=== PATIENT | male | born 1970 | race Hispanic/Latino ===

== ENCOUNTER 2018-01-28 11:42 | Inpatient (IN) | payer BC ==
[~2018-01-28] VITALS: Ht 175.3 cm; Wt 186.9 kg
[2018-01-28 12:18] LABS: BASOPHILS % (AUTO) 0.2 % (0.0-5.0); EOSINOPHILS % (AUTO) 0.3 % (0.0-8.0); HEMATOCRIT 35.8 % (42-54); MEAN CORPUSCULAR HGB CONC 33.4 g/dL (32.0-36.0); MEAN CORPUSCULAR VOLUME 83.8 fL (79-99); MONOCYTES % (AUTO) 11.6 % (3.0-13.0); NEUTROPHILS % (AUTO) 67.9 % (40.0-77.0); PLATELET COUNT (AUTO) 199 K/uL (130-400); RED BLOOD CELL COUNT(AUTO) 4.27 MIL/uL (4.50-6.20); RED CELL DISTRIBUTION WIDTH 16.3 % (11.0-15.5); WHITE BLOOD COUNT (AUTO) 8.7 K/uL (4.8-10.8)
[2018-01-28 12:25] LABS: CREATININE 1.4 mg/dL (0.5-1.5); POTASSIUM 3.4 mmol/L (3.5-5.1)
[2018-01-28 12:31] LABS: ALBUMIN 2.9 g/dL (3.5-5.0); BILIRUBIN,TOTAL 1.3 mg/dL (0.2-1.0); TOTAL PROTEIN, SERUM 7.8 g/dL (6.0-8.3)
[2018-01-28 12:50] LABS: B-TYPE NATRIURETIC PEPTIDE 182 pg/mL (0-100)
[2018-01-28] MEDS ORDERED: FUROSEMIDE 10 MG/ML 4ML VIAL ONE (14:36)
[2018-01-28] MEDS ORDERED: HYDRALAZINE HCL 20 MG/ML VIAL IV PRN (16:45)
[2018-01-28] MEDS ORDERED: ONDANSETRON HCL MDV 20ML 2 MG/ML VIAL IV PRN (16:45)
[2018-01-28] MEDS ORDERED: FUROSEMIDE 10 MG/ML 4ML VIAL IVP SCH (16:45)
[2018-01-28] MEDS ORDERED: ACETAMINOPHEN-CODEINE 300/30MG TAB PO PRN (16:45)
[2018-01-28] MEDS ORDERED: LACTULOSE 20 GM/30 ML UDCUP PO PRN (16:45)
[2018-01-28] MEDS ORDERED: ACETAMINOPHEN 325 MG TAB PO PRN (16:45)
[2018-01-28 17:42] LABS: TROPONIN I 0.05 ng/mL (0.00-0.06)
[2018-01-28 18:10] VITALS: BP 147/85
[2018-01-28] MEDS: ALBUTEROL SULFATE 0.083% 2.5 MG/3 ML INH IH SCH (19:02)
[2018-01-28 19:08] LABS: ABG BASE EXCESS 2.6 mmol/L (-2.0-3.0); ABG HCO3 26.1 mmol/L (21.0-28.0); ABG OXYGEN SATURATION 95.8 % (95.0-99.0); ABG PCO2 37 mmHg (35-48)
[2018-01-28 19:46] VITALS: BP 146/85
[2018-01-28] MEDS: FUROSEMIDE 10 MG/ML 4ML VIAL IVP SCH ×2 (20:00→20:48)
[2018-01-28] MEDS ORDERED: ENOXAPARIN SODIUM 40 MG/0.4 ML SYRINGE SQ SCH (21:00)
[2018-01-28] MEDS: FAMOTIDINE 20MG TAB 20 MG TAB PO SCH (21:04)
[2018-01-28] MEDS: ENOXAPARIN SODIUM 120 MG/0.8ML SQ SCH (21:05)
[2018-01-28] MEDS ORDERED: IOPAMIDOL-370 100 ML VIAL IV ONE (21:41)
[2018-01-28] MEDS ORDERED: POTASSIUM CHLORIDE 20 MEQ ERTAB PO ONE (22:30)
[2018-01-28] MEDS ORDERED: LIDOCAINE HCL-MPF 1% 2ML VIAL IVP PRN (22:30)
[2018-01-28] MEDS ORDERED: POTASSIUM CHLORIDE 10% ELIXIR 20 MEQ/15 ML UDCUP PO PRN (22:30)
[2018-01-28] MEDS ORDERED: POTASSIUM CHLORIDE 20MEQ/100ML 100 ML IV PRN (22:30)
[2018-01-28 23:39] VITALS: BP 160/96
[2018-01-28 23:53] LABS: TROPONIN I 0.05 ng/mL (0.00-0.06)
[2018-01-29] MEDS: ALBUTEROL SULFATE 0.083% 2.5 MG/3 ML INH IH SCH ×4 (00:03→19:34)
[2018-01-29] MEDS: POTASSIUM CHLORIDE 20 MEQ ERTAB PO PRN (01:39)
[2018-01-29 03:26] VITALS: BP 157/85
[2018-01-29 03:32] LABS: HEMATOCRIT 35.9 % (42-54); MEAN CORPUSCULAR HEMOGLOBIN 27.4 pg (27.0-33.0); MEAN CORPUSCULAR HGB CONC 32.9 g/dL (32.0-36.0); MEAN CORPUSCULAR VOLUME 83.6 fL (79-99); PLATELET COUNT (AUTO) 170 K/uL (130-400); RED CELL DISTRIBUTION WIDTH 16.5 % (11.0-15.5)
[2018-01-29 03:46] LABS: CREATININE 1.3 mg/dL (0.5-1.5); MAGNESIUM 1.8 mg/dL (1.80-2.40); POTASSIUM 3.9 mmol/L (3.5-5.1)
[2018-01-29 03:48] LABS: HEMOGLOBIN A1C 6.4 % (4.0-6.0)
[2018-01-29] MEDS: FUROSEMIDE 10 MG/ML 4ML VIAL IVP SCH ×3 (04:35→21:13)
[2018-01-29 07:00] VITALS: BP 123/99
[2018-01-29] MEDS ORDERED: ENOXAPARIN SODIUM 40 MG/0.4 ML SYRINGE SQ SCH (09:00)
[2018-01-29] MEDS: ENOXAPARIN SODIUM 120 MG/0.8ML SQ SCH (10:24)
[2018-01-29] MEDS: FAMOTIDINE 20MG TAB 20 MG TAB PO SCH ×2 (10:24→21:13)
[2018-01-29 11:00] VITALS: BP 138/93
[2018-01-29 16:00] VITALS: BP 145/87
[2018-01-29 19:53] VITALS: BP 137/92
[2018-01-29 23:52] VITALS: BP 126/81
[2018-01-30] MEDS: ALBUTEROL SULFATE 0.083% 2.5 MG/3 ML INH IH SCH ×2 (00:43→06:09)
[2018-01-30 04:01] VITALS: BP 135/85
[2018-01-30 04:11] LABS: HEMATOCRIT 37.5 % (42-54); MEAN CORPUSCULAR HEMOGLOBIN 27.5 pg (27.0-33.0); MEAN CORPUSCULAR HGB CONC 32.6 g/dL (32.0-36.0); MEAN CORPUSCULAR VOLUME 84.5 fL (79-99); NUCLEATED RED BLOOD CELLS 0.1 % (0.0-0.19); PLATELET COUNT (AUTO) 216 K/uL (130-400); RED BLOOD CELL COUNT(AUTO) 4.44 MIL/uL (4.50-6.20); RED CELL DISTRIBUTION WIDTH 16.9 % (11.0-15.5); WHITE BLOOD COUNT (AUTO) 7.6 K/uL (4.8-10.8)
[2018-01-30 04:25] LABS: CREATININE 1.3 mg/dL (0.5-1.5); INR 1.09 (0.85-1.15); MAGNESIUM 1.7 mg/dL (1.80-2.40); POTASSIUM 3.2 mmol/L (3.5-5.1); PROTHROMBIN TIME 11.4 SEC (9.6-11.6)
[2018-01-30] MEDS: FUROSEMIDE 10 MG/ML 4ML VIAL IVP SCH (04:35)
[2018-01-30] MEDS: POTASSIUM CHLORIDE 20 MEQ ERTAB PO PRN ×3 (04:35→09:10)
[2018-01-30 07:00] VITALS: BP 129/89
[2018-01-30] MEDS: FAMOTIDINE 20MG TAB 20 MG TAB PO SCH ×2 (07:56→22:46)
[2018-01-30] MEDS: METFORMIN HCL 500 MG TABLET PO SCH ×2 (07:56→18:03)
[2018-01-30] MEDS: LISINOPRIL 5 MG TABLET PO SCH (07:56)
[2018-01-30] MEDS ORDERED: ENOXAPARIN SODIUM 40 MG/0.4 ML SYRINGE SQ SCH (09:00)
[2018-01-30] MEDS ORDERED: ENOXAPARIN SODIUM 120 MG/0.8ML SQ SCH (09:00)
[2018-01-30] MEDS ORDERED: ENOXAPARIN SODIUM 60 MG/0.6 ML SQ SCH (09:00)
[2018-01-30] MEDS ORDERED: MAGNESIUM 2GM PREMIX 50ML 50 ML IV SCH (09:00)
[2018-01-30] MEDS ORDERED: ENOXAPARIN SODIUM 1 MG/KG SQ SCH (09:00)
[2018-01-30 11:00] VITALS: BP 130/85
[2018-01-30] MEDS: FUROSEMIDE 20 MG TABLET PO SCH ×2 (11:00→22:47)
[2018-01-30 16:00] VITALS: BP 109/71
[2018-01-30 19:47] VITALS: BP 137/80
[2018-01-30 19:50] VITALS: BP 88/57
[2018-01-30] MEDS ORDERED: FUROSEMIDE 10 MG/ML 4ML VIAL IVP SCH (21:00)
[2018-01-31] VITALS: BP 155/91
[2018-01-31] MEDS: METOPROLOL TARTRATE 25 MG TAB PO SCH ×2 (00:18→08:16)
[2018-01-31 02:57] VITALS: BP 138/83
[2018-01-31 03:10] LABS: CREATININE 1.2 mg/dL (0.5-1.5); HEMATOCRIT 37.6 % (42-54); MEAN CORPUSCULAR HEMOGLOBIN 27.3 pg (27.0-33.0); MEAN CORPUSCULAR HGB CONC 32.8 g/dL (32.0-36.0); MEAN CORPUSCULAR VOLUME 83.4 fL (79-99); NUCLEATED RED BLOOD CELLS 0.1 % (0.0-0.19); PLATELET COUNT (AUTO) 215 K/uL (130-400); POTASSIUM 3.8 mmol/L (3.5-5.1); RED BLOOD CELL COUNT(AUTO) 4.51 MIL/uL (4.50-6.20); RED CELL DISTRIBUTION WIDTH 16.4 % (11.0-15.5); WHITE BLOOD COUNT (AUTO) 7.2 K/uL (4.8-10.8)
[2018-01-31 03:11] LABS: INR 1.02 (0.85-1.15); PARTIAL THROMBOPLASTIN TIME 28.6 SEC (26.3-35.5); PROTHROMBIN TIME 10.7 SEC (9.6-11.6)
[2018-01-31] MEDS: POTASSIUM CHLORIDE 20 MEQ ERTAB PO PRN ×2 (05:25→06:48)
[2018-01-31 07:00] VITALS: BP 133/85
[2018-01-31] MEDS: METFORMIN HCL 500 MG TABLET PO SCH ×2 (08:16→16:39)
[2018-01-31] MEDS: LISINOPRIL 5 MG TABLET PO SCH (08:16)
[2018-01-31] MEDS: FAMOTIDINE 20MG TAB 20 MG TAB PO SCH (08:16)
[2018-01-31] MEDS ORDERED: RIVAROXABAN 20 MG TABLET PO SCH (09:00)
[2018-01-31 11:00] VITALS: BP 145/92
[2018-01-31] MEDS ORDERED: RIVA20TA PO (13:30)
[2018-01-31] MEDS ORDERED: LISI-617 PO (13:30)
[2018-01-31] MEDS ORDERED: METF500T6 PO (13:30)
[2018-01-31] MEDS ORDERED: FURO20TA6 PO (13:30)
[2018-01-31] MEDS ORDERED: METO25TA6 PO (13:30)
[2018-01-31] MEDS ORDERED: METO50 PO (13:35)
[2018-01-31] MEDS: FUROSEMIDE 20 MG TABLET PO SCH (14:15)
[2018-01-31] MEDS ORDERED: METOPROLOL TARTRATE 50 MG TAB PO SCH (21:00)
[2018-03-12] MEDS ORDERED: FURO20TA6 PO (13:30)
[2018-03-12] MEDS ORDERED: LISI10TA7 PO (13:30)
[2018-03-12] MEDS ORDERED: AMIO200T2 PO (13:30)
== END 2018-01-31 17:10 | disposition home or self-care (01) | DRG 309 ==
LOC: EDH 11:42 → EDHIP 16:28 → 2AH 17:45
PROVIDERS: ADMIT Family Medicine; ATTEND Family Medicine
PROC: 5A09357 Assistance with Respiratory Ventilation, Less than 24 Consecutive Hours, Continuous Positive Airway Pressure (ICD-10-PCS; principal; 2018-01-31)
DX: I48.91 Unspecified atrial fibrillation (principal); Z68.44 Body mass index [BMI] 60.0-69.9, adult; D68.69 Other thrombophilia; I11.0 Hypertensive heart disease with heart failure; E66.01 Morbid (severe) obesity due to excess calories; E83.42 Hypomagnesemia; I50.32 Chronic diastolic (congestive) heart failure; R06.03 Acute respiratory distress; K76.0 Fatty (change of) liver, not elsewhere classified; E11.9 Type 2 diabetes mellitus without complications; E87.6 Hypokalemia; G47.33 Obstructive sleep apnea (adult) (pediatric); I87.2 Venous insufficiency (chronic) (peripheral); Z79.01 Long term (current) use of anticoagulants; Z91.19 Patient's noncompliance with other medical treatment and regimen
CPT/HCPCS: 36415; 36600; 71045; 71275; 76705; 80048; 80053; 80061; 82150; 82550; 82553; 82803; 83036; 83690; 83735; 83874; 83880; 84484; 85025; 85027; 85378; 85610; 85730; 87804; 93005; 93306; 93970; 94640; 94660; 94664; J1650; J1940; J3475; Q9967

== ENCOUNTER 2018-03-15 07:20 | Day surgery (SDC) | payer BC ==
[2018-03-12 13:40] VITALS: BP 189/111
[2018-03-12 13:53] LABS: BASOPHILS % (AUTO) 0.7 % (0.0-5.0); EOSINOPHILS % (AUTO) 0.7 % (0.0-8.0); HEMATOCRIT 38.7 % (42-54); LYMPHOCYTES % (AUTO) 24.9 % (21.0-51.0); MEAN CORPUSCULAR HEMOGLOBIN 26.7 pg (27.0-33.0); MEAN CORPUSCULAR HGB CONC 32.2 g/dL (32.0-36.0); MEAN CORPUSCULAR VOLUME 82.9 fL (79-99); MONOCYTES % (AUTO) 6.9 % (3.0-13.0); NEUTROPHILS % (AUTO) 66.8 % (40.0-77.0); NUCLEATED RED BLOOD CELLS 0.1 % (0.0-0.19); PLATELET COUNT (AUTO) 191 K/uL (130-400); RED BLOOD CELL COUNT(AUTO) 4.67 MIL/uL (4.50-6.20); RED CELL DISTRIBUTION WIDTH 18.6 % (11.0-15.5)
[2018-03-12 14:03] LABS: INR 1.17 (0.85-1.15); PARTIAL THROMBOPLASTIN TIME 30.6 SEC (26.3-35.5); PROTHROMBIN TIME 12.2 SEC (9.6-11.6)
[2018-03-12 14:04] LABS: CREATININE 1.5 mg/dL (0.5-1.5)
[2018-03-15] VITALS (14 sets, daily range): BP systolic 117–156; BP diastolic 70–99
[~2018-03-15] VITALS: Ht 175.3 cm; Wt 181.9 kg
[~2018-03-15 07:20] MED LIST: AMIO200T5 PO; FURO20TA6 PO; LISI10TA7 PO; METF500T6 PO; METO50 PO; RIVA20TA PO
[2018-03-15] MEDS ORDERED: MIDAZOLAM HCL 1 MG/ML 2ML VIAL ONE ×2 (08:39→08:50)
[2018-03-15] MEDS ORDERED: FENTANYL CITRATE PF 50 MCG/1 ML 2ML VIAL ONE (08:40)
[2018-03-15] MEDS ORDERED: NALOXONE HCL 0.4 MG/1 ML ML ONE (08:42)
[2018-03-15] MEDS ORDERED: FLUMAZENIL 0.1MG/1ML 5ML VIAL IV ONE (08:43)
== END 2018-03-15 16:10 | disposition home or self-care (01) ==
LOC: DAH 07:20
PROVIDERS: ATTEND Internal Medicine Cardiovascular Disease
DX: I48.91 Unspecified atrial fibrillation (principal); E66.01 Morbid (severe) obesity due to excess calories; I11.0 Hypertensive heart disease with heart failure; I50.32 Chronic diastolic (congestive) heart failure; Z79.01 Long term (current) use of anticoagulants; G47.33 Obstructive sleep apnea (adult) (pediatric); E11.9 Type 2 diabetes mellitus without complications; Z79.84 Long term (current) use of oral hypoglycemic drugs; Z79.899 Other long term (current) drug therapy; Z68.43 Body mass index [BMI] 50.0-59.9, adult
CPT/HCPCS: 36415; 80048; 82948; 85025; 85610; 85730; 92960; 93005 ×2; A4606; J2250; J3010; 99156; J2310; J3490

== ENCOUNTER → 2019-04-19 | Outpatient (CLI) | payer MEDICAID ==
[~2019-04-19] VITALS: Ht 175.3 cm; Wt 147.4 kg
[~2019-04-19] MED LIST changes: -AMIO200T5 PO; +AMLO5TAB9 PO; -FURO20TA6 PO; +FURO40TA5 PO; +LISI-613 PO; -LISI10TA7 PO; +METF-444 PO; -METF500T6 PO; +METO100T14 PO; -METO50 PO; +PANT40TA25 PO; +POTA-79 PO; +REGADENOSON 0.4 MG/5 ML PF SYG IVP SCH
== END | disposition home or self-care (01) ==
LOC: SHCH 09:32
PROVIDERS: ATTEND Internal Medicine Cardiovascular Disease
DX: I48.4 Atypical atrial flutter (principal); R06.09 Other forms of dyspnea; I20.9 Angina pectoris, unspecified
CPT/HCPCS: 78452; 93017; 96374; A9500 ×2; J2785

== ENCOUNTER → 2020-01-31 | Outpatient (CLI) | payer MEDICAID ==
[~2020-01-31] MED LIST changes: -REGADENOSON 0.4 MG/5 ML PF SYG IVP SCH
== END | disposition home or self-care (01) ==
LOC: OIH 15:46
PROVIDERS: ATTEND Internal Medicine
DX: M17.12 Unilateral primary osteoarthritis, left knee (principal); M79.89 Other specified soft tissue disorders
CPT/HCPCS: 73560

== ENCOUNTER → 2020-12-05 | Outpatient (CLI) | payer MEDICAID ==
[~2020-12-05] MED LIST changes: +AMLO-257 PO; -AMLO5TAB9 PO; -PANT40TA25 PO; +PANT40TA54 PO
== END | disposition home or self-care (01) ==
LOC: SHCH 11:14
PROVIDERS: ATTEND Internal Medicine Cardiovascular Disease
DX: I87.2 Venous insufficiency (chronic) (peripheral) (principal); I73.9 Peripheral vascular disease, unspecified
CPT/HCPCS: 93925; 93970

== ENCOUNTER → 2021-04-09 | Outpatient (CLI) | payer MEDICARE ==
[~2021-04-09] MED LIST changes: -LISI-613 PO; +LISI20TA24 PO
== END | disposition home or self-care (01) ==
LOC: SHCH 10:23
PROVIDERS: ATTEND Internal Medicine Cardiovascular Disease
DX: I48.0 Paroxysmal atrial fibrillation (principal); R55 Syncope and collapse; R06.09 Other forms of dyspnea; E66.9 Obesity, unspecified; E78.5 Hyperlipidemia, unspecified; E11.9 Type 2 diabetes mellitus without complications
CPT/HCPCS: 93306; 93356

== ENCOUNTER → 2021-05-01 | Outpatient (CLI) | payer MEDICAID | END | disposition home or self-care (01) | LOC: SHCH 09:29 | PROVIDERS: ATTEND Internal Medicine Cardiovascular Disease | DX: I87.2 Venous insufficiency (chronic) (peripheral) (principal); I73.9 Peripheral vascular disease, unspecified; K21.9 Gastro-esophageal reflux disease without esophagitis | CPT/HCPCS: 93925; 93970 ==

== ENCOUNTER → 2023-01-08 | Outpatient (CLI) | payer OTHER | END | disposition home or self-care (01) | LOC: DTH 12:00 | PROVIDERS: ATTEND Surgery | DX: Z71.3 Dietary counseling and surveillance (principal); E66.01 Morbid (severe) obesity due to excess calories; E11.9 Type 2 diabetes mellitus without complications; I10 Essential (primary) hypertension; K76.0 Fatty (change of) liver, not elsewhere classified; M19.91 Primary osteoarthritis, unspecified site; K21.9 Gastro-esophageal reflux disease without esophagitis; G47.33 Obstructive sleep apnea (adult) (pediatric); Z68.43 Body mass index [BMI] 50.0-59.9, adult | CPT/HCPCS: 97803 ==

== ENCOUNTER → 2023-03-17 | Outpatient (CLI) | payer OTHER | END | disposition home or self-care (01) | LOC: DTH 10:13 | PROVIDERS: ATTEND Surgery | DX: Z71.3 Dietary counseling and surveillance (principal); E66.01 Morbid (severe) obesity due to excess calories; E11.9 Type 2 diabetes mellitus without complications; I10 Essential (primary) hypertension; M19.91 Primary osteoarthritis, unspecified site; K76.0 Fatty (change of) liver, not elsewhere classified; G47.33 Obstructive sleep apnea (adult) (pediatric); K21.9 Gastro-esophageal reflux disease without esophagitis; Z68.43 Body mass index [BMI] 50.0-59.9, adult | CPT/HCPCS: 97803 ==

== ENCOUNTER → 2023-05-06 | Outpatient (CLI) | payer MEDICARE ==
[~2023-05-06] MED LIST changes: +POTA-364 PO; -POTA-79 PO
[2023-05-06 16:41] LABS: POTASSIUM 3.9 mmol/L (3.5-5.1)
[2023-05-06 17:05] LABS: CREATININE 1.1 mg/dL (0.5-1.5)
== END | disposition home or self-care (01) ==
LOC: LAB 11:57
PROVIDERS: ATTEND Internal Medicine Cardiovascular Disease
DX: I48.19 Other persistent atrial fibrillation (principal); I50.32 Chronic diastolic (congestive) heart failure
CPT/HCPCS: 36415; 80048; 83880

== ENCOUNTER 2023-06-15 13:00 | Inpatient (IN) | payer MEDICARE ==
[~2023-06-15] VITALS: Ht 172.7 cm; Wt 171.8 kg
[~2023-06-15 13:00] MED LIST changes: -LISI20TA24 PO; -METF-444 PO; -METO100T14 PO; -POTA-364 PO
[2023-06-15 14:59] LABS: BASOPHILS % (AUTO) 0.3 % (0.0-5.0); EOSINOPHILS % (AUTO) 1.8 % (0.0-8.0); LYMPHOCYTES % (AUTO) 34.7 % (21.0-51.0); MEAN CORPUSCULAR HEMOGLOBIN 27.1 pg (27.0-33.0); MEAN CORPUSCULAR HGB CONC 31.7 g/dL (32.0-36.0); MEAN CORPUSCULAR VOLUME 85.7 fL (79-99); MONOCYTES % (AUTO) 6.8 % (3.0-13.0); NEUTROPHILS % (AUTO) 56.1 % (40.0-77.0); PLATELET COUNT (AUTO) 216 K/uL (130-400); RED CELL DISTRIBUTION WIDTH 14.8 % (11.0-15.5); WHITE BLOOD COUNT (AUTO) 6.6 K/uL (4.8-10.8)
[2023-06-15 15:07] LABS: CREATININE 1.2 mg/dL (0.5-1.5); POTASSIUM 4.1 mmol/L (3.5-5.1)
[2023-06-15 15:11] LABS: INR 0.93 (0.85-1.15); PROTHROMBIN TIME 10.8 SEC (9.6-11.6)
[2023-06-15 15:12] LABS: PARTIAL THROMBOPLASTIN TIME 33.4 SEC (26.3-35.5)
[2023-06-15 15:54] VITALS: BP 134/82; PULSE 77; RESP 18
[2023-06-15] MEDS ORDERED: SERT-439 PO (15:59)
[2023-06-15] MEDS ORDERED: LISI20TA24 PO (15:59)
[2023-06-15] MEDS ORDERED: METO25TA6 PO (15:59)
[2023-06-15] MEDS ORDERED: METF-444 PO (15:59)
[2023-06-19] VITALS (28 sets, daily range): BP systolic 113–188; BP diastolic 73–112; PULSE 72–97; RESP 14–20; O2SAT 97
[2023-06-19] MEDS ORDERED: 0.9%NACL 1000ML 1,000 ML IV ONE (09:14)
[2023-06-19] MEDS ORDERED: CEFAZOLIN SODIUM 1 GM VIAL ONE (09:14)
[2023-06-19] MEDS ORDERED: MIDAZOLAM HCL 1 MG/ML 2ML VIAL ONE (10:11)
[2023-06-19] MEDS ORDERED: LIDOCAINE PF 100MG/5ML (2%) SYRINGE 5ML ONE (10:11)
[2023-06-19] MEDS ORDERED: PROPOFOL 10 MG/ML 20ML VIAL IV ONE (10:11)
[2023-06-19] MEDS ORDERED: ROCURONIUM 10MG/1ML SYR 10 MG/ML ML ONE ×2 (10:11→10:41)
[2023-06-19] MEDS ORDERED: SUCCINYLCHOLINE CHLORIDE 20 MG/ML 10 ML VIAL ONE (10:11)
[2023-06-19] MEDS ORDERED: FENTANYL CITRATE PF 50 MCG/1 ML 2ML VIAL ONE ×2 (10:12→11:03)
[2023-06-19] MEDS ORDERED: SUGAMMADEX SODIUM 200 MG/2 ML VIAL IV ONE (10:33)
[2023-06-19] MEDS ORDERED: DEXAMETHASONE SOD PHOSPHATE 4 MG/ML 1ML VIAL ONE (10:40)
[2023-06-19] MEDS ORDERED: ONDANSETRON 4MG INJ ONE ×2 (10:40→12:55)
[2023-06-19] MEDS ORDERED: METHYLENE BLUE 5 MG/ML AMP ONE (10:43)
[2023-06-19] MEDS ORDERED: NEOSTIGMINE 5MG/5ML SYR IV ONE (10:46)
[2023-06-19] MEDS ORDERED: GLYCOPYRROLATE 1 MG/5 ML SYRINGE ONE (10:46)
[2023-06-19] MEDS ORDERED: EPHEDRINE SULFATE 50 MG/ML AMPULE ONE (10:47)
[2023-06-19] MEDS ORDERED: PHENYLEPHRINE HCL 10 MG/ML 1ML VIAL IV ONE (10:50)
[2023-06-19] MEDS ORDERED: HEPARIN 5,000 UNIT VIAL ONE (11:05)
[2023-06-19] MEDS ORDERED: MEPERIDINE-PF 25 MG/ML SYG ONE ×2 (12:55→13:15)
[2023-06-19] MEDS ORDERED: HYDRALAZINE 20MG/ML VIAL ONE (13:34)
[2023-06-19] MEDS ORDERED: MORPHINE PCA 50MG/50ML NS IV SCH ×2 (14:30→17:00)
[2023-06-19] MEDS: LACTATED RINGERS 1000ML 1,000 ML IV SCH (14:46)
[2023-06-19] MEDS ORDERED: HYDROMORPHONE 1 MG INJ IVP PRN (16:30)
[2023-06-19] MEDS ORDERED: HYDROMORPHONE 0.5 MG SYG (0.5MG/0.5ML) ONE (16:31)
[2023-06-19] MEDS: METFORMIN HCL 500 MG TABLET PO SCH (20:11)
[2023-06-19] MEDS: FAMOTIDINE 20MG VIAL IV SCH (20:11)
[2023-06-19] MEDS: METOPROLOL TARTRATE 25 MG TAB PO SCH ×2 (20:12→20:17)
[2023-06-19] MEDS: LISINOPRIL 20 MG TABLET PO SCH ×2 (20:12→20:17)
[2023-06-19] MEDS: HEPARIN 5,000 UNIT VIAL SQ SCH (20:13)
[2023-06-19] MEDS: AMLODIPINE 5 MG TAB PO SCH (20:18)
[2023-06-19] MEDS ORDERED: LISINOPRIL 20 MG TABLET PO SCH (21:00)
[2023-06-19] MEDS ORDERED: METOPROLOL TARTRATE 25 MG TAB PO SCH (21:00)
[2023-06-20] VITALS: BP 129/67; PULSE 70; RESP 18
[2023-06-20 04:00] VITALS: BP 144/78; PULSE 89; RESP 18
[2023-06-20] MEDS ORDERED: HEPARIN 5,000 UNIT VIAL ONE (04:16)
[2023-06-20] MEDS: LACTATED RINGERS 1000ML 1,000 ML IV SCH (05:09)
[2023-06-20] MEDS: HEPARIN 5,000 UNIT VIAL SQ SCH ×2 (05:10→15:09)
[2023-06-20 08:00] VITALS: O2SAT 97
[2023-06-20 08:10] VITALS: BP 123/72; PULSE 65; RESP 18
[2023-06-20] MEDS ORDERED: SERTRALINE HCL 50 MG TABLET PO SCH (09:00)
[2023-06-20] MEDS ORDERED: AMLODIPINE 5 MG TAB PO SCH (09:00)
[2023-06-20] MEDS ORDERED: PANTOPRAZOLE 40 MG TAB DR PO SCH (09:00)
[2023-06-20] MEDS ORDERED: FUROSEMIDE 40 MG TABLET PO SCH (09:00)
[2023-06-20] MEDS: METFORMIN HCL 500 MG TABLET PO SCH (10:45)
[2023-06-20] MEDS: AMLODIPINE 5 MG TAB PO SCH (10:46)
[2023-06-20] MEDS: FAMOTIDINE 20MG VIAL IV SCH (10:50)
[2023-06-20] MEDS: METOPROLOL TARTRATE 25 MG TAB PO SCH (10:51)
[2023-06-20 12:00] VITALS: BP 128/90; PULSE 67; RESP 18
[2023-06-20 16:00] VITALS: BP 120/77; PULSE 64; RESP 18
[2023-06-20] MEDS ORDERED: TYL3LL PO (16:07)
== END 2023-06-20 18:00 | disposition home or self-care (01) | DRG 620 ==
LOC: DAHIP 06-19 08:55 → 4CH 06-19 14:00 → UNDODISIN 06-19 19:20
PROVIDERS: ADMIT Surgery; ATTEND Surgery
PROC: 0DB64Z3 Excision of Stomach, Percutaneous Endoscopic Approach, Vertical (ICD-10-PCS; principal; 2023-06-19 10:19)
DX: E88.81 Metabolic syndrome and other insulin resistance (principal); Z68.43 Body mass index [BMI] 50.0-59.9, adult; I10 Essential (primary) hypertension; E66.01 Morbid (severe) obesity due to excess calories; I48.91 Unspecified atrial fibrillation; Z86.73 Personal history of transient ischemic attack (TIA), and cerebral infarction without residual deficits; E11.9 Type 2 diabetes mellitus without complications
CPT/HCPCS: 36415; 80048; 82948; 85025; 85610; 85730; 87426; 97039; G0378; J0330; J0360; J0690; J1100; J1170; J1644; J2001; J2175; J2250; J2270; J2371; J2405; J2704; J2710; J3010; J3490; J7030; Q9968; A4215; A4221; A4222; A4223; A4600; A6260; G8980-CI; G8983-CI

== ENCOUNTER → 2024-06-25 | Outpatient (CLI) | payer MEDICARE ==
[~2024-06-25] MED LIST changes: +LISI20TA24 PO; +METF-444 PO; +METO25TA6 PO; +SERT-439 PO
== END | disposition home or self-care (01) ==
LOC: SHCH 09:05
PROVIDERS: ATTEND Internal Medicine Cardiovascular Disease
DX: R94.31 Abnormal electrocardiogram [ECG] [EKG] (principal)
CPT/HCPCS: 93306

== ENCOUNTER → 2024-10-18 | Outpatient (CLI) | payer MEDICARE ==
--- NOTE | 2024-10-18 15:15 | HMCIMG ---
CHEST 2VWS REASON: SOB COMPARISON: 10/12/2018 FINDINGS: Two views of the chest were obtained. There is moderate cardiomegaly. There is no pulmonary vascular congestion. Lungs are clear. Mediastinum and bony thorax appear unremarkable. IMPRESSION: 1. Moderate cardiomegaly, stable to somewhat decreased compared to previous exam. 2. No acute finding.
== END | disposition home or self-care (01) ==
LOC: RAH 14:09
PROVIDERS: ATTEND Internal Medicine
DX: R06.02 Shortness of breath (principal); I51.7 Cardiomegaly
CPT/HCPCS: 71046